=== PATIENT | female | born 1965 | race Caucasian/White ===

== ENCOUNTER → 2022-04-12 | Emergency (ER) | payer SELFPAY ==
[~2022-04-12] VITALS: Ht 162.6 cm; Wt 59.1 kg
[2022-04-12 01:48] VITALS: BP 142/85
== END ==
LOC: ER 01:36
DX: Z04.3 Encounter for examination and observation following other accident (principal); Z88.5 Allergy status to narcotic agent; V29.9XXA Motorcycle rider (driver) (passenger) injured in unspecified traffic accident, initial encounter; Y93.89 Activity, other specified; Y92.89 Other specified places as the place of occurrence of the external cause; Y99.8 Other external cause status
CPT/HCPCS: 99284